=== PATIENT | male | born 1960 | race Caucasian/White ===

== ENCOUNTER → 2022-07-02 13:46 | Outpatient (CLI) | payer OTHER, SELFPAY ==
--- NOTE | 2022-07-02 | DI.NM.S_ITS ---
PROCEDURE: NM MARTINEZ PERF SPECT R&S PHARM Rest and pharmacological stress myocardial perfusion SPECT with gated imaging and ejection fraction RADIOPHARMACEUTICAL: 26.9 mCi Tc-99m tetrafosmin IV at rest and 26.3 mCi Tc-99m tetrafosmin IV at peak effect of pharmacological stress. [id number] was performed. INDICATIONS: Dyspnea on exertion TECHNIQUE: Radiopharmaceutical was injected at peak stress test, and also at rest. SPECT images were obtained. SPECT myocardial perfusion images were displayed in short axis, horizontal long axis, and vertical long axis views. Gated images were reviewed using [employer] software. COMPARISON: None. CARDIAC STRESS: A pharmacologic stress test was performed under the supervision of an attending staff, using an infusion of lexiscan 0.4mg IV X1. Hemodynamic data: There is normal blood pressure and heart rate response to pharmacologic stress. Symptoms: The patient denied anginal chest pain. Aminophylline: none EKG: No diagnostic changes of ischemia; no ectopy. FINDINGS: Raw data: There is good myocardial uptake of radiotracer. No significant motion artifacts. Left ventricle function: Gated images demonstrate normal left ventricular wall thickening. No segmental wall motion abnormalities. No transient ischemic dilation; TID is 1.16 (normal less than 1.3). Left ventricle resting end diastolic volume is 173 mL. Left ventricle stress ejection fraction is 75%; normal range is above 45%. Myocardial perfusion: There is a mildly intense fixed inferior wall defect that is probably diaphragmatic attenuation artifact but old non-transmural infarction can't be excluded. No ischemia. No prone images obtained due to patient inability. IMPRESSION: Low risk, probably normal pharmaceutical nuclear stress test 1) There is a mildly intense fixed inferior wall defect that is probably diaphragmatic attenuation artifact but old non-transmural infarction can't be excluded. No ischemia. No prone images obtained due to patient inability. 2) Enlarged left ventricle (resting EDV 173cc) with normal wall motion and normal systolic function (EF 75% post stress). 3) No ST changes with lexiscan. 4) No angina during the study. 5) No prior nuclear stress test available for comparison. Dictated by: Alec Carrion MD on 07/03/2022 at 17:16 Approved by: Alec Carrion MD on 07/03/2022 at 17:19
== END ==
PROVIDERS: PCP Student in an Organized Health Care Education/Training Program; Referring Provider Student in an Organized Health Care Education/Training Program; Visit Provider Student in an Organized Health Care Education/Training Program
DX: R06.09 Other forms of dyspnea (principal)
CPT/HCPCS: 78452; 93017; A9502; J2785